=== PATIENT | male | born 1945 | race Caucasian/White ===

== ENCOUNTER → 2020-03-31 12:52 | Outpatient (CLI) | payer OTHER, SELFPAY ==
--- NOTE | 2020-03-31 | DI.RAD.S_ITS ---
PROCEDURE: XR LUMBAR SPINE 2-3V INDICATIONS: Spinal stenosis, lumbar region without neurogenic claudicati TECHNIQUE: 3 views of the lumbar spine were acquired. COMPARISON: None. FINDINGS: Bones: 5 [id number] vertebrae are present. There is normal bony alignment. No vertebral body compression fractures. No suspicious bony lesions. Small osteophytes are noted throughout the lumbar spine. Intervertebral disc space narrowing is present at L5-S1. Soft tissues: Overlying bowel gas pattern is normal. There is moderate atheromatous calcification throughout the aorta. IMPRESSION: 1. Mild degenerative change. 2. Aortic atherosclerosis. Dictated by: Lisseth Ledesma M.D. on 03/31/2020 at 15:28 Approved by: Lisseth Ledesma M.D. on 03/31/2020 at 15:29
== END ==
PROVIDERS: PCP Internal Medicine; Referring Provider Internal Medicine; Visit Provider Internal Medicine
DX: M48.061 Spinal stenosis, lumbar region without neurogenic claudication (principal); M47.816 Spondylosis without myelopathy or radiculopathy, lumbar region; I70.0 Atherosclerosis of aorta
CPT/HCPCS: 72100

== ENCOUNTER 2021-09-02 10:27 | Emergency (ER) | payer MEDICARE, SELFPAY ==
[2021-09-02] VITALS (7 sets, daily range): BP systolic 98–135; BP diastolic 64–75; PULSE 73–93; RESP 17–22; TEMP 36.4; O2SAT 94–97; BMI 24.4
--- NOTE | 2021-09-02 10:38 | DI.RAD.S_ITS ---
PROCEDURE: XR CHEST 1V INDICATIONS: shortness of breath TECHNIQUE: One view of the chest was acquired. COMPARISON: None. FINDINGS: Surgical changes and devices: None. Lungs and pleura: Lungs are clear. No pleural effusions or pneumothorax. Mediastinum: Mediastinal contours appear normal. Heart size is normal. Bones and chest wall: No suspicious bony lesions. Overlying soft tissues appear unremarkable. IMPRESSION: No evidence acute pulmonary process. Dictated by: Lester Neri M.D. on 09/02/2021 at 10:51 Approved by: Lester Neri M.D. on 09/02/2021 at 10:52
--- NOTE | 2021-09-02 10:52 | ED_ITS ---
HPI - General Adult General Chief complaint: Shortness of Breath/Dyspnea Stated complaint: acute pulimanary distress Time Seen by Provider: 09/02/21 10:52 Source: patient Mode of arrival: Ambulatory History of Present Illness HPI narrative: 75-year-old male. Has a history of COPD. Is on inhalers but not on chronic oxygen use. Couple days ago he had an episode where he had shortness of breath. No chest pain. The shortness of breath lasted approximately 1 hour. He stated that things improved. The next morning he woke up and felt well but since then has had somewhat of a chronic nonproductive cough. Subjective fevers. Mae gagnon his primary doctor told him to come to the emergency department for evaluation. Related Data Previous Rx's Medication Instructions Recorded azithromycin 250 mg tablet See Rx Instructions .ROUTE 09/02/21 .COMPLEX #6 tab prednisone 20 mg tablet 20 mg PO DAILY 5 Days #5 tab 09/02/21 Allergies Allergy/AdvReac Type Severity Reaction Status Date / Time No Known Drug Allergies Allergy Verified 09/02/21 10:38 Review of Systems Constitutional Constitutional: Denies fever(s) Cardiovascular Cardiovascular: Denies chest pain Respiratory Respiratory: Reports as per HPI and Reports system reviewed and no additional c omplaints, except as documented Gastrointestinal Gastrointestinal: Reports system reviewed and no additional complaints, except as documented Integumentary/Breasts Skin/Breast: Reports system reviewed and no additional complaints, except as documented Hematologic/Lymphatic On Anticoagulants: No Patient History Medical History COPD (chronic obstructive pulmonary disease) Social History Smoking Status: Unknown if ever smoked Smoking Status: Unknown if ever smoked alcohol intake frequency: a few times a week Substance Use Type: does not use Exam Initial Vital Signs Initial Vital Signs: Vital Signs Pulse Rate 84 09/02/21 10:34 Respiratory Rate 22 09/02/21 10:34 Pulse Oximetry 95 09/02/21 10:34 Const General: cooperative and healthy appearing [facility] Head: normal to inspection and normocephalic Resp Effort & Inspection: normal respiratory effort Auscultation: clear to auscultation bilaterally Cardio Rate: regular rate Rhythm: regular rhythm GI Inspection: normal to inspection Skin General: no rashes or lesions noted Neuro General: patient alert, patient awake and moves all extremities Extrem General: normal to inspection, capillary refill normal and No edema Psych Appearance: grossly normal Course Orders Ordered: ED Orders 09/02/21 10:38 XR chest 1V Stat COVID19 -Nasal RAPID/Pre-Proc Stat EKG-12 Lead Stat Measure peak expiratory flow ONCE RT Consult Eval and Treat Now 09/02/21 10:55 Complete Blood Count AUTO DIFF Stat Comprehensive Metabolic Panel Stat Lactate (Lactic Acid) Stat NT-proBNP (BNP-Adult 18+) Stat Prothrombin Time INR Stat Vital Signs Vital signs: Vital Signs - 8 hr 09/02/21 10:34 09/02/21 10:35 09/02/21 11:00 Temperature 97.6 F Pulse Rate 84 93 H 75 Respiratory Rate 22 17 22 Blood Pressure 135/75 Pulse Oximetry 95 97 95 09/02/21 11:01 Temperature Pulse Rate 75 Respiratory Rate Blood Pressure 98/64 Pulse Oximetry 95 Medical Decision Making Lab Data Result diagrams: 09/02/21 10:55 09/02/21 10:55 Labs: Lab Results 09/02/21 09/02/21 09/02/21 Range/Units 10:38 10:55 10:55 WBC 15.9 H (4.5-11.0) X10^3/uL RBC 4.19 L (4.5-5.9) X10^6/uL Hgb 13.4 L (13.5-17.5) g/dL Hct 39.3 L (41-53) % MCV 93.8 (80-100) fL MCH 31.9 (26-34) PG MCHC 34.0 (30-36) % RDW 12.9 (11.6-14.8) % Plt Count 246 (150-400) X10^3/uL Neut % (Auto) 77.8 H (50-75) % Lymph % (Auto) 10.3 L (25-40) % Forrest % (Auto) 11.0 (3-14) % Eos % (Auto) 0.4 L (2-4) % Baso % (Auto) 0.5 (0-2) % Neut # (Auto) 82890 H (8417-2636) /uL Lymph # (Auto) 1600 (0472-8990) /uL Forrest # (Auto) 1700 H (0-900) /uL Eos # (Auto) 100 (0-450) /uL Baso # (Auto) 100 (0-100) /uL PT 12.9 H (10.1-12.7) SECONDS INR 1.2 (0.9-1.3) Sodium (137-145) mmol/L Potassium (3.4-5.1) mmol/L Chloride (98-107) mmol/L Carbon Dioxide (22-32) mmol/L BUN (9-20) mg/dL Creatinine (0.66-1.25) mg/dL Estimated GFR (>60) mL/min BUN/Creatinine Ratio (6-22) Glucose (80-110) mg/dL Lactate (0.7-2.1) mmol/L Calcium (8.4-10.2) mg/dL Total Bilirubin (0.2-1.3) mg/dL AST (17-59) IU/L ALT (<50) IU/L Alkaline Phosphatase (38-126) U/L NT-Pro-B Natriuret Pep (<125) pg/mL Total Protein (6.3-8.2) g/dL Albumin (3.5-5.0) g/dL Globulin (1.7-4.1) g/dL Albumin/Globulin Ratio (1.0-2.8) SARS-CoV-2 (PCR) Negative (Negative) 09/02/21 09/02/21 Range/Units 10:55 10:55 WBC (4.5-11.0) X10^3/uL RBC (4.5-5.9) X10^6/uL Hgb (13.5-17.5) g/dL Hct (41-53) % MCV (80-100) fL MCH (26-34) PG MCHC (30-36) % RDW (11.6-14.8) % Plt Count (150-400) X10^3/uL Neut % (Auto) (50-75) % Lymph % (Auto) (25-40) % Forrest % (Auto) (3-14) % Eos % (Auto) (2-4) % Baso % (Auto) (0-2) % Neut # (Auto) (2150-3698) /uL Lymph # (Auto) (4356-4302) /uL Forrest # (Auto) (0-900) /uL Eos # (Auto) (0-450) /uL Baso # (Auto) (0-100) /uL PT (10.1-12.7) SECONDS INR (0.9-1.3) Sodium 137 (137-145) mmol/L Potassium 4.4 (3.4-5.1) mmol/L Chloride 106 (98-107) mmol/L Carbon Dioxide 25 (22-32) mmol/L BUN 18 (9-20) mg/dL Creatinine 1.04 (0.66-1.25) mg/dL Estimated GFR > 60 (>60) mL/min BUN/Creatinine Ratio 17.3 (6-22) Glucose 96 (80-110) mg/dL Lactate 1.5 (0.7-2.1) mmol/L Calcium 8.8 (8.4-10.2) mg/dL Total Bilirubin 0.9 (0.2-1.3) mg/dL AST 42 (17-59) IU/L ALT 42 (<50) IU/L Alkaline Phosphatase 119 (38-126) U/L NT-Pro-B Natriuret Pep 91 (<125) pg/mL Total Protein 7.7 (6.3-8.2) g/dL Albumin 4.2 (3.5-5.0) g/dL Globulin 3.5 (1.7-4.1) g/dL Albumin/Globulin Ratio 1.2 (1.0-2.8) SARS-CoV-2 (PCR) (Negative) Imaging Data Chest x-ray: Radiologist's Impression: [address] [address] XRay Report Signed Patient: Pavel Brian MR#: [id number] : 1945 Acct:[id number] Age/Sex: 75 / M Date of Service: 09/02/21 Loc: ED Accession Number: [id number] ?? Procedure: XR chest 1V Ordering Provider: Sim Romano D.O. PROCEDURE:? XR CHEST 1V ? INDICATIONS:? shortness of breath ? TECHNIQUE:? One view of the chest was acquired.? ? COMPARISON:? None. ? FINDINGS:? ? Surgical changes and devices:? None.? ? Lungs and pleura:? Lungs are clear.? No pleural effusions or pneumothorax.? ? Mediastinum:? Mediastinal contours appear normal.? Heart size is normal.? ? Bones and chest wall:? No suspicious bony lesions.? Overlying soft tissues appear unremarkable.? ? IMPRESSION:? No evidence acute pulmonary process. ? ? ? Dictated by: Lester Neri M.D. on 09/02/2021 at 10:51 ? ? Approved by: Lester Neri M.D. on 09/02/2021 at 10:52?? ECG Data Attestation: I personally reviewed and interpreted this ECG as follows: Interpretation: Sinus rhythm Ventricular rate of 67 Normal axis Normal QRS Normal QTC No ST T wave changes MDM Narrative Medical decision making narrative: Not on home oxygen. Does have a history of COPD. Has had subjective fevers, shortness of breath, cough that is different from his baseline. His chest x-ray shows no signs of pneumonia. His EKG is unremarkable. Plan abuse to treat him for COPD exacerbation. Antibiotics and steroids sent from receive his choice. He was given return precautions. He expressed understanding agreement. Discharge Plan Departure Patient Disposition: Home Clinical Impression: Acute exacerbation of chronic obstructive airways disease Instructions: DI for Chronic Obstructive Pulmonary Disease Activity Restrictions/Additional Instructions: I do recommend that you take all of the medications as directed. Contact your primary doctor for a follow-up. Return to the emergency department for any new or worsening symptoms. Prescriptions: New prednisone 20 mg tablet 20 mg PO DAILY 5 Days Qty: 5 0RF azithromycin 250 mg tablet See Rx Instructions .ROUTE .COMPLEX Qty: 6 0RF Rx Instructions: For 250 mg dose pack: take 500 mg today (day 1), then 250 mg for 4 days (days 2-5) Referrals: Tim Mathew MD [Primary Care Provider] -
[2021-09-02 11:09] LABS: Add Manual Diff / Slide Review NO; Basophils Absolute Auto 100 /uL (0-100); Basophils Percent Auto 0.5 % (0-2); Eosinophils Absolute Auto 100 /uL (0-450); Eosinophils Percent Auto 0.4 % (2-4); Hematocrit 39.3 % (41-53); Hemoglobin 13.4 g/dL (13.5-17.5); Lymphocytes Absolute Auto 1600 /uL (1100-4500); Lymphocytes Percent Auto 10.3 % (25-40); Mean Corpuscular Hemoglobin 31.9 PG (26-34); Mean Corpuscular Volume 93.8 fL (80-100); Monocytes Absolute Auto 1700 /uL (0-900); Neutrophils Absolute Auto 12400 /uL (1500-7000); Neutrophils Percent Auto 77.8 % (50-75); Platelet Count 246 X10^3/uL (150-400); Red Blood Cell Count 4.19 X10^6/uL (4.5-5.9); Red Cell Distribution Width 12.9 % (11.6-14.8); White Blood Cell Count 15.9 X10^3/uL (4.5-11.0)
[2021-09-02 11:16] LABS: INR 1.2 (0.9-1.3); Prothrombin Time 12.9 SECONDS (10.1-12.7)
[2021-09-02 11:20] LABS: Alanine Aminotransferase 42 IU/L (<50); Albumin 4.2 g/dL (3.5-5.0); Albumin Globulin Ratio 1.2 (1.0-2.8); Alkaline Phosphatase 119 U/L (38-126); Aspartate Aminotransferase 42 IU/L (17-59); BUN Creatinine Ratio 17.3 (6-22); Bilirubin Total 0.9 mg/dL (0.2-1.3); Blood Urea Nitrogen 18 mg/dL (9-20); Calcium 8.8 mg/dL (8.4-10.2); Carbon Dioxide 25 mmol/L (22-32); Chloride 106 mmol/L (98-107); Estimated Glomerular Filt Rate > 60 mL/min (>60); Globulin 3.5 g/dL (1.7-4.1); Glucose 96 mg/dL (80-110); Lactate (Lactic Acid) 1.5 mmol/L (0.7-2.1); Sodium 137 mmol/L (137-145); Total Protein 7.7 g/dL (6.3-8.2)
[2021-09-02 11:24] LABS: HEMOLYSIS 89 (0-50); Potassium 4.4 mmol/L (3.4-5.1)
[2021-09-02 11:26] LABS: COVID19 -Nasal RAPID Negative (Negative)
[2021-09-02 11:29] LABS: NT-proBNP (BNP-Adult 18+) 91 pg/mL (<125)
== END 2021-09-02 12:12 | disposition home or self-care (01) ==
PROVIDERS: Emergency Provider Emergency Medicine; PCP Internal Medicine
DX: J44.1 Chronic obstructive pulmonary disease with (acute) exacerbation (principal); Z20.822 Contact with and (suspected) exposure to COVID-19
CPT/HCPCS: 36415; 71045; 80053; 83605; 83880; 85025; 85610; 87635; 93005; 99283; C9803

== ENCOUNTER 2023-06-04 16:26 | Emergency (ER) | payer MEDICARE, SELFPAY ==
[2023-06-04 16:42] VITALS: BP 188/90; PULSE 92; RESP 16; TEMP 37; O2SAT 96; BMI 25.0
--- NOTE | 2023-06-04 16:50 | DI.RAD.S_ITS ---
PROCEDURE: XR FINGER LT MIN 2V INDICATIONS: injury/laceration TECHNIQUE: AP hand, 2 views of the left thumb finger(s) acquired. COMPARISON: None. FINDINGS: Bones: There is osseous defect/injury involving the left thumb distal phalanx. No definite fracture seen. Small radiopaque densities likely represent small bone fragments. Remainder of the visualized osseous structures appear intact. Soft tissues: Soft tissue injury involving the distal left thumb. Previously described tiny soft tissue densities favored to represent small bony fragments although radiopaque soft tissue foreign bodies not excluded. IMPRESSION: Soft tissue injury without underlying bony injury/defect involving the left thumb distal phalanx. No definite fracture seen. Tiny soft tissue densities at site of injury may represent small bony fragments versus radiopaque soft tissue foreign bodies. Dictated by: Sanjay Blount M.D. on 06/04/2023 at 17:25 Approved by: Sanjay Blount M.D. on 06/04/2023 at 17:27
[2023-06-04] MEDS: TET,DIPH,PERTUSS(ACELL),VAC/PF 0.5 ML SYRINGE IM (19:42)
[2023-06-04 19:53] VITALS: BP 168/94; PULSE 84; RESP 18; O2SAT 98
--- NOTE | 2023-06-05 10:44 | ED_ITS ---
HPI - Extremity Injury (Upper) <Natividad Colorado PA-C - Last Filed: 06/05/23 10:50> General Chief Complaint: Extremity Injury, Upper Stated Complaint: lt thumb lac Time Seen by Provider: 06/04/23 18:03 Source: family Mode of arrival: Ambulatory History of Present Illness HPI narrative: 77-year-old male presents to the ED status post a thumb injury sustained just prior to arrival. Patient was using a table saw when he accidentally injured his left thumb. Bleeding was controlled with pressure. Patient denies numbness, tingling, weakness. Patient endorses full range of motion. Tetanus status unknown. Related Data Previous Rx's Medication Instructions Recorded azithromycin 250 mg tablet See Rx Instructions PO .COMPLEX #6 09/02/21 tabs Allergies Allergy/AdvReac Type Severity Reaction Status Date / Time No Known Drug Allergies Allergy Verified 09/02/21 10:38 Review of Systems <Natividad Colorado PA-C - Last Filed: 06/05/23 10:50> Constitutional Constitutional: Denies chills, Denies fatigue, Denies fever(s), Denies frequent falls, Denies lethargy and Denies weakness Eyes Eyes: Denies change in vision, Denies eye discharge, Denies irritation and Giles es loss of vision ENT Ears, Nose, Mouth, and Throat: Denies change in voice, Denies dizziness, Denies neck pain, Denies sore throat and Denies throat swelling Cardiovascular Cardiovascular: Denies chest pain, Denies irregular heart rhythm, Denies lightheadedness, Denies palpitations, Denies dyspnea, Denies dyspnea on exertion and Denies orthopnea Respiratory Respiratory: Denies cough, Denies dyspnea, Denies dyspnea on exertion and Denies wheezing Gastrointestinal Gastrointestinal: Denies abdominal pain, Denies change in bowel habits, Denies diarrhea, Denies nausea and Denies vomiting Musculoskeletal Musculoskeletal: Denies neck pain and Denies numbness Integumentary/Breasts Skin/Breast: Denies pruritus, Denies erythema, Denies rash and Denies wounds Comments: Left thumb laceration Neurologic Neurologic: Denies behavioral changes, Denies confusion, Denies dizziness, Denies frequent falls, Denies loss of vision, Denies numbness and Denies weakness Psychiatric Psychiatric: Denies anxiety, Denies behavioral changes, Denies confusion, Denies depression, Denies homicidal ideation and Denies suicidal ideation Endocrine Endocrine: Denies fatigue, Denies flushing and Denies palpitations Hematologic/Lymphatic Hematologic/Lymphatic: Denies easy bruising Allergic/Immunologic Allergic/Immunologic: Denies urticaria, Denies throat swelling and Denies wheezing Patient History <Natividad Coloraod PA-C - Last Filed: 06/05/23 10:50> Medical History COPD (chronic obstructive pulmonary disease) Social History Smoking Status: Unknown if ever smoked Smoking Status: Unknown if ever smoked alcohol intake frequency: a few times a week Substance Use Type: does not use Exam <Natividad Colorado PA-C - Last Filed: 06/05/23 10:50> Narrative Exam Narrative: Const General:?cooperative, healthy appearing and comfortable HENGA Head:?normal to inspection Ears:?hearing grossly normal bilaterally Nose:?external nose normal Face and sinus:?normal facial exam and sinuses nontender Mouth:?oral mucosae normal Throat:?posterior oropharynx normal Eyes General:?appearance normal, both eyes and all related structures Neck Neck:?normal visual inspection and no lymphadenopathy noted Resp Effort & Inspection:?normal respiratory effort Auscultation:?clear to auscultation bilaterally Cardio Rate:?regular rate Rhythm:?regular rhythm Integumentary There is a L-shaped, somewhat irregular laceration to the volar aspect of the left distal thumb. No nail bed injury. There is full range of motion. Patient is neurovascularly intact. Bleeding is controlled with pressure. Neuro General:?patient alert, patient awake and patient oriented x3 Initial Vital Signs Initial Vital Signs: Vital Signs Temperature 98.6 F 06/04/23 16:42 Pulse Rate 92 H 06/04/23 16:42 Respiratory Rate 16 06/04/23 16:42 Blood Pressure 188/90 H 06/04/23 16:42 Pulse Oximetry 96 06/04/23 16:42 Oxygen Delivery Method Room Air 06/04/23 16:42 <Eduarda Cruz DO - Last Filed: 06/11/23 07:12> Initial Vital Signs Initial Vital Signs: Vital Signs Temperature 98.6 F 06/04/23 16:42 Pulse Rate 92 H 06/04/23 16:42 Respiratory Rate 16 06/04/23 16:42 Blood Pressure 188/90 H 06/04/23 16:42 Pulse Oximetry 96 06/04/23 16:42 Oxygen Delivery Method Room Air 06/04/23 16:42 Procedures <Natividad Colorado PA-C - Last Filed: 06/05/23 10:50> Laceration Repair Laceration 1: Site: hand Side (If applicable): left Size (cm): 2 Description: irregular Depth: simple, single layer Local Anesthetic: lidocaine 2% Pre-repair: wound explored, irrigated extensively and deep structures intact Skin layer closed with: nylon Skin layer suture size: 5-0 Number of sutures: 11 Technique: simple, interrupted Course <Natividad Colorado PA-C - Last Filed: 06/05/23 10:50> Orders Ordered: Discontinued Medications Diphtheria/Tetanus/Acell Pertussis (Tet,Diph,Pertuss(Acell),Vac/Pf 0.5 Ml Sy ringe) 0.5 ml IM .ONCE ONE Stop: 06/04/23 19:39 Last Admin: 06/04/23 19:42 Dose: 0.5 ml Documented By: RL <Eduarda Cruz DO - Last Filed: 06/11/23 07:12> Orders Ordered: Discontinued Medications Diphtheria/Tetanus/Acell Pertussis (Tet,Diph,Pertuss(Acell),Vac/Pf 0.5 Ml Syringe) 0.5 ml IM .ONCE ONE Stop: 06/04/23 19:39 Last Admin: 06/04/23 19:42 Dose: 0.5 ml Documented By: DELFINA [facility] - Extremity Injury (Upper) <Natividad Colorado PA-C - Last Filed: 06/05/23 10:50> [facility] Narrative Medical decision making narrative: 77-year-old male presents to the ED status post a thumb injury sustained just prior to arrival. Concern for fracture/dislocation versus laceration versus other. X-ray was obtained which shows a small osseous defect or injury involving the left thumb distal phalanx, however no definite fracture seen. Small radiopaque densities likely represent small bone fragments. Physical exam is reassuring, patient is neurovascularly intact. Laceration was repaired with sutures. Tetanus was updated today. Prescribed antibiotics. Discussed suture removal, signs of infection and wound care with patient. ED return precautions were discussed with patient. Patient verbalized understanding. Medical records reviewed: Yes Discharge Plan Departure Patient Disposition: Home Clinical Impression: Laceration Instructions: DI for Laceration Repair Activity Restrictions/Additional Instructions: You were evaluated in the ED today for a thumb injury. Your x-ray did not show a specific fracture, however there are some lucencies on your could possibly be little fragments of bone. Your laceration was repaired with 11 sutures. The sutures will need to be removed in 7-10 days. You may return to the ED or go to your PCP or walk-in clinic for suture removal. Please watch for signs of infection including worsening redness, warmth, swelling, pain, discharge. You are being prescribed antibiotics as a precautionary measure. Return to the ED if you note any signs of infection. Please keep the wound clean and dry for the 1st 24 hours, after which you may wash gently with soap and water. Your tetanus was updated today and will be good for the next 10 years. Prescriptions: No Action azithromycin 250 mg tablet See Rx Instructions .ROUTE .COMPLEX Qty: 6 0RF Rx Instructions: For 250 mg dose pack: take 500 mg today (day 1), then 250 mg for 4 days (days 2-5) Referrals: Tim Mathew MD [Primary Care Provider] - Stand Alone Forms: Patient Portal/API ED Sign-out <Eduarda Cruz DO - Last Filed: 06/11/23 07:12> Cosign ED Attending Elzaature Attestation: I was immediately available in the department for consultation.
== END 2023-06-04 19:53 | disposition home or self-care (01) ==
PROVIDERS: Emergency Provider Student in an Organized Health Care Education/Training Program; PCP Internal Medicine
DX: S61.012A Laceration without foreign body of left thumb without damage to nail, initial encounter (principal); W27.0XXA Contact with workbench tool, initial encounter; Z23 Encounter for immunization
CPT/HCPCS: 12001; 73140; 90471; 99283; 90715

== ENCOUNTER 2023-06-16 09:48 | Emergency (ER) | payer MEDICARE, SELFPAY ==
--- NOTE | 2023-06-16 09:53 | ED_ITS ---
HPI - General Adult General Chief complaint: Recheck/Abnormal Lab/Rx Stated complaint: NEEDS THUMB LOOKED AT NOT HEALING Time Seen by Provider: 06/16/23 09:51 History of Present Illness HPI narrative: 77-year-old gentleman who injured his left thumb with a table saw on June 04. He was originally seen in the emergency department with sutures placed. He notes there was a small area on the lateral aspect of the thumb that was still a bit tender. You should it to his primary care doctor with a routine visit yesterday who felt that he needed to be re-evaluated in the emergency department. He has not having any fevers, there is no drainage from the area. He did complete a 5 day course of Keflex. He has no other specific complaints or concerns today Related Data Previous Rx's Medication Instructions Recorded azithromycin 250 mg tablet See Rx Instructions PO .COMPLEX #6 09/02/21 tabs cephalexin 500 mg capsule 500 mg PO TID #15 caps 06/16/23 Allergies Allergy/AdvReac Type Severity Reaction Status Date / Time No Known Drug Allergies Allergy Verified 06/16/23 09:58 Review of Systems Review of Systems Narrative: Pertinent positive and negative findings as per HPI Patient History Medical History COPD (chronic obstructive pulmonary disease) Social History Smoking Status: Unknown if ever smoked Smoking Status: Unknown if ever smoked alcohol intake frequency: a few times a week Substance Use Type: does not use Exam Initial Vital Signs Initial Vital Signs: General: Alert appropriate in no acute distress Respiratory: Able to speak in full sentences, no obvious respiratory distress Skin: No obvious rashes, warm and dry Neurologic: Grossly intact no obvious asymmetries or abnormalities Psych: appropriate insight and affect, cooperative Extremity: Left thumb is examined. Eleven sutures are removed. Still slight decreased sensation to the tip of the thumb but good capillary refill. There does not appear to be any infection the wound overall appears to be healing nicely and this is appropriate for day 12 post injury. Medical Decision Making MDM Narrative Medical decision making narrative: CC: Suture removal and re-evaluation of thumb wound Complicating co-morbidities: Cut the tip of his thumb with a table saw on June 04 Data collected from: patient Medical records reviewed: Note from initial visit and repair is reviewed Differential considered: Time to take the stitches out, normal healing, infection Exam documented above, pertinent findings include: Wound appears to be healing nicely. Stitches are due for removal. There was no significant redness, edema, lymphangitic streaking, purulent discharge or disorder to the area. Treatments: The wound is soaked due to a small amount of dried blood over the area. Sutures removed without difficulty. No purulent discharge. Still does not have fine sensation to the tip of his thumb. Once the stitches removed the wound overall was less tender. There was an area on the medial aspect of the thumb that is more abraded than cut. This area has nice granulation tissue and does not appear to be infected. Discussion:77-year-old gentleman with left thumb wound from a table saw that is now 12-day-old. The wound is dressed with bacitracin, gauze and a finger splint is placed over the tip of the wound. It does not appear to be significantly infected but there is enough minor amounts of serous fluid that still, the risk for infection is high and we will treat with 5 more days of Keflex. Clearly reviewed signs and symptoms of worsening infection, cellulitis or any types of lymphangitic spread and reasons to return to the emergency department. Wound healing is as expected for 12 days. He is safe for discharge Discharge Plan Departure Patient Disposition: Home Clinical Impression: Laceration of thumb Qualifiers: Encounter type: subsequent encounter Damage to nail status: without damage Foreign body presence: without foreign body Laterality: left Qualified Code(s): S61.012D - Laceration without foreign body of left thumb without damage to nail, subsequent encounter Activity Restrictions/Additional Instructions: Thank you for coming in today The wound is as expected for 12 days. I believe it is beginning to heal nicely but does still need a bit more time. That exceptionally tender area on the inner aspect is still going to take more time as the skin continues to grow over that. Please keep the wound covered with antibiotic ointment until it feels like it is truly healing along the suture line. Some of that discolored tissue will dry up and fall off and that is as expected. Using the finger splint over the area will help so that it has not being bumped or irritated. With the slight opening along the suture line your still at risk for infection, I am going to send in a prescription for Keflex to [facility]. Please do see if you are able to get 3 doses in today. If you find that you are getting worse or develop any new symptoms, please feel free to return to the emergency department for further evaluation. Prescriptions: New cephalexin 500 mg capsule 500 mg PO TID Qty: 15 0RF No Action azithromycin 250 mg tablet See Rx Instructions .ROUTE .COMPLEX Qty: 6 0RF Rx Instructions: For 250 mg dose pack: take 500 mg today (day 1), then 250 mg for 4 days (days 2-5) Referrals: Tim Mathew MD [Primary Care Provider] - Stand Alone Forms: Patient Portal/API
[2023-06-16 09:54] VITALS: BP 192/86; PULSE 78; RESP 18; TEMP 36.6; O2SAT 98; BMI 25.7
[2023-06-16] MEDS: BACITRACIN OINT 0.9 GM PCKT 1 APPLIC TOP (10:24)
--- NOTE | 2023-06-16 11:04 | PC.NURSE ---
This RN called in prescription to [facility] Cephalexin 500mg TID for 15 capsules.
== END 2023-06-16 10:50 | disposition home or self-care (01) ==
PROVIDERS: Emergency Provider Emergency Medicine; PCP Internal Medicine
DX: S61.012D Laceration without foreign body of left thumb without damage to nail, subsequent encounter (principal)
CPT/HCPCS: 99282